=== PATIENT | female | born 1985 | race Two or more races ===

== ENCOUNTER 2017-08-24 10:05 | Day surgery (SDC) | payer OTHER ==
[~2017-08-24] VITALS: Ht 160 cm; Wt 63.0 kg
[~2017-08-24 10:05] MED LIST: BUPIVACAINE-EPI 0.25%-1:200000 50 ML VIAL. ONE; DEXAMETHASONE SOD PHOS 20 MG/5 ML VIAL. ONE; HYDROmorphone 2 MG/ML VIAL IV PRN; IV RINGERS,LACTATED 1000ML 1,000 ML IV SCH; LIDOCAINE 1% PF 2 ML VIAL. ID PRN; LIDOCAINE 2% PF Vial for OR 5 ML VIAL. ONE; MIDAZOLAM HCL/PF 2 MG/2 ML VIAL. ONE; MORPHINE SULFATE 2 MG/ML DISP.SYRIN. IV PRN; ONDANSETRON PF 4 MG/2 ML VIAL. IV PRN; ONDANSETRON PF 4 MG/2 ML VIAL. ONE; PROCHLORPERAZINE 10 MG/2 ML VIAL. IV PRN; PROPOFOL 20 ML IV ONE; SEVOFLURANE 31 TO 60 MINUTES. IH ONE; fentaNYL PF VIAL 100 MCG/2 ML VIAL IV PRN; fentaNYL PF VIAL 100 MCG/2 ML VIAL ONE
[2017-08-24] MEDS ORDERED: IV RINGERS,LACTATED 1000ML 1,000 ML IV ONE (10:30)
[2017-08-24 12:05] LABS: NEG OBC UR NEG; POS OBC UR POS
--- NOTE | 2017-08-24 12:43 | PDOC4 ---
Operative Note Operative Note Date: 08/24/2017 Preoperative diagnosis: Right breast mass Postoperative diagnosis: Same Procedure: Excisional biopsy right breast mass Surgeon: Jaydon Specimen: Right breast mass Dictation: Patient is a 32-year-old female who felt a lump in her right breast she underwent mammography which showed a mass within the right breast corresponding to the area of palpation. The procedure of excisional biopsy was explained to the patient detail was benefits were also discussed including bleeding infection alternatives to this procedure also discussed with the patient seemed understanding gave both verbal and written consent had procedure performed. Patient was taken to the operating room placed in the supine position general anesthesia was initiated once patient was asleep and intubated her right breast and chest were prepped and draped usual sterile fashion using ChloraPrep. Area over the mass was injected with quarter percent Marcaine with epinephrine incision was made with a 15 blade scalpel this carried down through the subcutaneous tissue left cautery to sharply excise the mass which was sent for pathology. Hemostasis was controlled with electrocautery the wound was closed in 2 layers a deep layer running 3-0 Vicryl and the skin was approximate 4 subcuticular Monocryl Mastisol Steri-Strips 4 x 4's Medipore tape were applied as dressing. The patient was awakened and extubated in the operating room taken to recovery in stable condition all sponge instrument and needle counts listed as correct. Estimated blood loss: 10 mL POPPY CASTRO MD Aug 24, 2017 12:43
--- NOTE | 2017-08-24 12:43 | DISCH ---
DISCHARGE INSTRUCTIONS Condition on Discharge Condition on Discharge: Stable Activity After Discharge Activity Instructions for Disc: Activity as tolerated Diet after Discharge Diet after Discharge: Regular Wound Incision Care Other wound/incision instructi: May shower in 24 hours Contacting the after DC Call your doctor for: If your condition worsens Follow-Up Follow up with: Dr Csatro in 2 weeks POPPY CASTRO MD Aug 24, 2017 12:43
[2017-08-24] MEDS ORDERED: fentaNYL PF VIAL 100 MCG/2 ML VIAL ONE (13:06)
[2017-08-24] MEDS: fentaNYL PF VIAL 100 MCG/2 ML VIAL IV PRN ×2 (13:08→13:36)
[2017-08-24] MEDS ORDERED: HYDR-971 PO (13:26)
[2017-08-24] MEDS ORDERED: HYDROcodone/APAP 5/325MG 1 TAB TABLET PO ONE (14:00)
[2017-08-24 14:40] VITALS: BP 100/60
--- NOTE | 2017-08-26 11:05 | PATHOLOGY ---
PATHOLOGY REPORT * * * * * * * * FINAL DIAGNOSIS: Breast tissue, right breast mass excision: - Fibroadenoma, excised. - Fibrocystic and fibroadenomatous changes. (JPM:[email or web address]; 08/26/2017) COMMENT: There is no evidence of malignancy. REPORT ELECTRONICALLY SIGNED BY: Magnus Wilcox M.D. DATE/TIME: 08/26/2017 11:04 * * * * * * * * GROSS PATHOLOGY: The specimen is received in formalin, labeled "Lisa Bunch and right breast mass and consists of a 34 g fragment of fibrofatty breast tissue and oriented per requisition slip with "long stitch lateral, short stitch superficial, and double stitch medial." It measures 5.2 cm L-M, 5.0 cm S-I, and 3.4 cm A-P. The surgical margins are inked as follows: Superior blue, inferior green, lateral yellow, medial red, anterior orange, and posterior black. The specimen is serially sectioned from medial to lateral into 13 levels. Beginning in level IX and extending into level X is a sharply circumscribed, solid, slightly whorled and white glistening nodule that measures 1.6 x 1.5 x 1.4 cm. The following measurements of nodule to margins are obtained: Posterior less than 0.1 cm, anterior 1.1 cm, superior 0.5 cm, inferior 2.2 cm, lateral 2.3 cm, and medial 2.5 cm or greater. The remaining levels show dense white stroma accounting for 75% of specimen while the remaining 25% is consistent with unremarkable adipose tissue. A metallic marker is not grossly identified. The cold ischemic time is 2 minutes and the formalin fixation time is approximately 30 hours. A1 level I, medial, perpendicular A2, level III, insurance account representative A3 level V, insurance account representative A4 level , insurance account representative A5 level VII, insurance account representative A6-A7 level VIII, insurance account representative A8 level XI, insurance account representative A9 level XII, insurance account representative A10 level XIII, lateral, perpendicular, insurance account representative (JOSE; 08/25/2017) INITIAL CPT CODE(S): A; 11149 Professional services performed by [facility] at [address] [address] Technical services performed by [facility] at [address] [place] [address], [address], [place] [address]. SPECIMEN(S) RECEIVED: A.Right breast mass CLINICAL HISTORY: Breast mass PATIENT: LISA BUNCH /AGE: 705/13/1985 (Age: 32) PATIENT #: [id number] ALT CASE #: SPECIMEN COLLECTION DATE: 08/24/2017 SPECIMEN RECEIVED DATE: 08/24/2017 [facility] - [address] [place] [address] - PHONE: [phone] * * * END OF REPORT * * *
== END 2017-08-24 14:43 | disposition home or self-care (01) ==
LOC: SURG 10:05
PROVIDERS: ATTEND Surgery
DX: N60.21 Fibroadenosis of right breast (principal); D64.9 Anemia, unspecified; K21.9 Gastro-esophageal reflux disease without esophagitis
CPT/HCPCS: 81025; C1769; J1100; J1956; J2250; J2405; J2704; J3010; J2001